=== PATIENT | female | born 1980 | race Caucasian/White ===

== ENCOUNTER → 2017-11-07 | Outpatient (CLI) | payer OTHER ==
[~2017-11-07] MED LIST: ACETAMINOPHEN-1 EAC1 PO; CIPROFLOXACIN500 M1 PO; COLACE 100 MG100 MG PO; COLACE100 MG PO; CYCLOBENZAPRINE5 MG PO; DICLOFENAC SODI75 MG PO; FLAGYL500 MG PO; FLEXERIL PO; FLOMAX0.4 MG PO; HYDROCODONE-AP1 EAC6 PO; HYDROCODONE-APA1 TA1 PO; IBUPROFEN 800800 M1 PO; IBUPROFEN 800800 MG PO; LO LOESTRIN FE1 EACH; MIRALAX17 GM PO; NABUMETONE 750750 M1 PO; NAPROSYN500 MG PO; NOHOMEMEDICATIONS; NORCO 5-325 TA1 EAC1 PO; NORCO 5-325 TA1 EACH PO; ONDANSETRON HCL4 M2 PO; PHENERGAN 25 MG25 M1 PO; PRINIVIL20 MG PO; ROBAXIN500 MG PO; TORADOL 10 MG T10 MG PO; TRAMADOL 50 MG50 MG; TRAMADOL 50 MG50 MG PO; TRAZODONE 150150 M1 PO; ULTRAM 50MG TAB50 MG; ULTRAM 50MG TAB50 MG PO; ZOFRAN ODT4 MG PO
== END ==
LOC: M.MRI 10-30 07:30
DX: S73.191A Other sprain of right hip, initial encounter (principal); X58.XXXA Exposure to other specified factors, initial encounter; Y93.89 Activity, other specified; Y92.89 Other specified places as the place of occurrence of the external cause; Y99.8 Other external cause status

== ENCOUNTER 2017-12-12 09:52 | Emergency (ER) | payer OTHER ==
[~2017-12-12] VITALS: Ht 162.6 cm; Wt 74.8 kg
[~2017-12-12 09:52] MED LIST changes: -CIPROFLOXACIN500 M1 PO; -FLAGYL500 MG PO; -PRINIVIL20 MG PO; -TRAZODONE 150150 M1 PO; -ULTRAM 50MG TAB50 MG PO
[2017-12-12] MEDS ORDERED: TRAZODONE 150150 M1 PO (10:04)
[2017-12-12] MEDS ORDERED: ULTRAM 50MG TAB50 MG PO (10:14)
[2017-12-12] MEDS ORDERED: FLEXERIL PO (10:14)
[2017-12-12 10:18] VITALS: BP 138/73
== END 2017-12-12 10:19 | disposition home or self-care (01) ==
LOC: M.ERS 09:52
DX: S40.011A Contusion of right shoulder, initial encounter (principal); F17.210 Nicotine dependence, cigarettes, uncomplicated; Z88.1 Allergy status to other antibiotic agents; V43.52XA Car driver injured in collision with other type car in traffic accident, initial encounter; Y93.I9 Activity, other involving external motion; Y92.828 Other wilderness area as the place of occurrence of the external cause; Y99.8 Other external cause status

== ENCOUNTER 2018-04-02 07:12 | Emergency (ER) | payer OTHER ==
[~2018-04-02] VITALS: Ht 167.6 cm; Wt 83.7 kg
[~2018-04-02 07:12] MED LIST changes: +TRAZODONE 150150 M1 PO; +ULTRAM 50MG TAB50 MG PO
[2018-04-02] MEDS ORDERED: TRAMADOL 50 MG50 MG PO (07:30)
[2018-04-02] MEDS ORDERED: PRINIVIL20 MG PO (07:30)
[2018-04-02 07:47] LABS: ABSOLUTE BASOPHILS 0.1 thou/uL (0.0-0.2); ABSOLUTE EOSINOPHILS 0.3 thou/uL (0.0-0.7); ABSOLUTE LYMPHOCYTES 2.8 thou/uL (0.8-5.3); ABSOLUTE MONOCYTES 0.7 thou/uL (0.0-1.2); BASOPHILS 0.6 %; EOSINOPHILS 2.1 %; HEMATOCRIT 41.7 % (37.0-47.0); HEMOGLOBIN 14.1 gm/dL (12.0-15.0); MCH 29.2 pg (26.0-34.0); MCHC 33.9 g/dL (28.0-37.0); MCV 86.1 fL (80.0-100.0); MPV 8.2 fl. (7.2-11.1); NUCLEATED RBCS 0 /100WBC; PLATELET COUNT* 393 thou/uL (150-400); POLYS 72.3 %; RBC 4.85 mil/uL (4.20-5.00); RDW-CV 13.2 % (10.5-14.5); WBC 13.8 thou/uL (4.0-11.0)
[2018-04-02 08:00] LABS: URINE BILIRUBIN NEGATIVE (Negative); URINE BLOOD 1+ (Negative); URINE CLARITY CLEAR; URINE COLOR YELLOW; URINE GLUCOSE-RANDOM NEGATIVE (Negative); URINE KETONES NEGATIVE (Negative); URINE LEUKOCYTES-REFLEX NEGATIVE (Negative); URINE NITRITE-REFLEX NEGATIVE (Negative); URINE PROTEIN NEGATIVE (Negative); URINE UROBILINOGEN 0.2 E.U./dl (0.2-1.0)
[2018-04-02 08:01] LABS: ANION GAP 11 mmol/L (7-16); BUN 20 mg/dL (7-18); CALCIUM 9.6 mg/dL (8.5-10.1); CHLORIDE 103 mmol/L (98-107); CO2 24 mmol/L (21-32); CREATININE 0.9 mg/dL (0.6-1.3); GLUCOSE 102 mg/dL (70-99); POTASSIUM 3.4 mmol/L (3.5-5.1); SODIUM 138 mmol/L (136-145)
[2018-04-02 08:07] LABS: ALBUMIN 4.5 g/dL (3.4-5.0); ALKALINE PHOSPHATASE 103 U/L (46-116); LIPASE 298 U/L (73-393); SGOT 18 U/L (15-37); SGPT 32 U/L (30-65); TOTAL BILIRUBIN 0.3 mg/dL (<0.1-1.0); TOTAL PROTEIN 8.9 g/dL (6.4-8.2); TROPONIN-I LEVEL <0.06 ng/mL (<0.06)
[2018-04-02] MEDS ORDERED: CIPROFLOXACIN500 M1 PO (09:10)
[2018-04-02] MEDS ORDERED: ZOFRAN ODT4 MG PO (09:10)
[2018-04-02] MEDS ORDERED: FLAGYL500 MG PO (09:10)
[2018-04-02] MEDS ORDERED: HYDROCODONE-AP1 EAC6 PO (09:10)
[2018-04-02 09:19] VITALS: BP 126/73
--- NOTE | 2018-04-02 10:23 | EKG ---
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[id number] Requested By: Davidson Garg Order Number: [id number] MD: Marino Daniel Measurements Intervals [place] Rate: 98 P: 60 NH: 227 QRS: 84 QRSD: 84 T: 32 QT: 332 QTc: 424 Interpretive Statements Sinus rhythm Prolonged NH interval Probable left atrial enlargement Baseline wander in lead(s) V2,V3 Compared to ECG 02/16/2017 13:19:38 no change Electronically Signed On 04-02-2018 10:23:37 CDT by Marino Daniel [email or web address] <ELECTRONICALLY SIGNED> By: Marino Daniel MD, [facility] 04/02/18 1023 0740 0740 Marino Daniel MD, [facility] /EPI
== END 2018-04-02 09:19 | disposition home or self-care (01) ==
LOC: M.ERS 07:12
PROVIDERS: Emergency Medicine
DX: K52.9 Noninfective gastroenteritis and colitis, unspecified (principal); N39.0 Urinary tract infection, site not specified; F17.210 Nicotine dependence, cigarettes, uncomplicated; Z88.1 Allergy status to other antibiotic agents; Z90.711 Acquired absence of uterus with remaining cervical stump

== ENCOUNTER → 2018-04-30 | Outpatient (CLI) | payer OTHER ==
[~2018-04-30] MED LIST changes: +CIPROFLOXACIN500 M1 PO; +FLAGYL500 MG PO; +PRINIVIL20 MG PO
== END ==
LOC: M.RAD 04-19 12:31
DX: M25.551 Pain in right hip (principal); Z79.899 Other long term (current) drug therapy

== ENCOUNTER → 2018-06-18 | Outpatient (CLI) | payer OTHER ==
[2018-06-18 11:39] LABS: ALBUMIN 4.2 g/dL (3.4-5.0); DIRECT BILIRUBIN 0.1 mg/dL (<0.1-0.3); TOTAL BILIRUBIN 0.2 mg/dL (<0.1-1.0); TOTAL PROTEIN 7.8 g/dL (6.4-8.2)
[2018-06-18 12:17] LABS: % SATURATION 32 % (20-39); IRON 94 ug/dL (50-175)
[2018-06-19 07:07] LABS: HEPATITIS B SURFACE AG Negative (Negative)
[2018-06-19 16:07] LABS: CERULOPLASMIN 25.1 mg/dL (19.0-39.0)
[2018-06-20 10:08] LABS: ANA INTERPRETATION Negative (Negative)
== END ==
LOC: M.LAB 10:57
PROVIDERS: Nurse Practitioner Family
DX: R74.8 Abnormal levels of other serum enzymes (principal); R17 Unspecified jaundice; R11.0 Nausea; R19.7 Diarrhea, unspecified

== ENCOUNTER → 2018-08-02 | Outpatient (CLI) | payer OTHER | LOC: M.MRI 07:10 | DX: M47.892 Other spondylosis, cervical region (principal); M54.2 Cervicalgia ==

== ENCOUNTER → 2018-10-04 | Outpatient (CLI) | payer OTHER ==
[2018-10-04 12:37] LABS: ALBUMIN 4.1 g/dL (3.4-5.0); CALCIUM 9.1 mg/dL (8.5-10.1); CREATININE 0.7 mg/dL (0.6-1.3); TOTAL BILIRUBIN 0.2 mg/dL (<0.1-1.0); TOTAL PROTEIN 7.7 g/dL (6.4-8.2)
== END ==
LOC: M.LAB 11:37 → M.CT 11:37
PROVIDERS: Nurse Practitioner Family
DX: R07.89 Other chest pain (principal); R31.9 Hematuria, unspecified; R10.9 Unspecified abdominal pain

== ENCOUNTER → 2018-12-10 | Outpatient (CLI) | payer OTHER | LOC: M.MRI 11:04 | DX: M51.27 Other intervertebral disc displacement, lumbosacral region (principal) ==

== ENCOUNTER 2018-12-29 14:21 | Emergency (ER) | payer OTHER ==
[~2018-12-29] VITALS: Ht 162.6 cm; Wt 90.7 kg
[2018-12-29 14:27] VITALS: BP 169/83
[2018-12-29] MEDS ORDERED: ORPHENADRINE C100 M2 PO (14:31)
[2018-12-29] MEDS ORDERED: LISINOPRIL40 MG PO (14:31)
[2018-12-29] MEDS ORDERED: NORCO 5-325 TA1 EACH PO (14:37)
[2018-12-29] MEDS ORDERED: CLEOCIN HCL150 MG PO (14:37)
[2018-12-29] MEDS ORDERED: LIDOCAINE VISC100 ML SWISH&SPIT (14:37)
== END 2018-12-29 14:40 | disposition home or self-care (01) ==
LOC: M.ERS 14:21
DX: M27.3 Alveolitis of jaws (principal); F17.210 Nicotine dependence, cigarettes, uncomplicated; Z88.1 Allergy status to other antibiotic agents; Z90.711 Acquired absence of uterus with remaining cervical stump

== ENCOUNTER 2019-02-17 17:56 | Emergency (ER) | payer OTHER ==
[~2019-02-17] VITALS: Ht 162.6 cm; Wt 90.7 kg
[~2019-02-17 17:56] MED LIST changes: +CLEOCIN HCL150 MG PO; +LIDOCAINE VISC100 ML SWISH&SPIT; +LISINOPRIL40 MG PO; +ORPHENADRINE C100 M2 PO
[2019-02-17] MEDS ORDERED: IBUPROFEN 800800 M1 PO (19:33)
[2019-02-17 19:41] VITALS: BP 182/69
== END 2019-02-17 19:42 | disposition home or self-care (01) ==
LOC: M.ERS 17:56
DX: S20.211A Contusion of right front wall of thorax, initial encounter (principal); Z90.710 Acquired absence of both cervix and uterus; F17.210 Nicotine dependence, cigarettes, uncomplicated; Z88.1 Allergy status to other antibiotic agents; W10.8XXA Fall (on) (from) other stairs and steps, initial encounter; Y93.89 Activity, other specified; Y92.89 Other specified places as the place of occurrence of the external cause; Y99.8 Other external cause status

== ENCOUNTER → 2020-03-10 | Outpatient (CLI) | payer OTHER | LOC: M.MRI 16:50 | DX: S73.102A Unspecified sprain of left hip, initial encounter (principal); M77.8 Other enthesopathies, not elsewhere classified; M25.452 Effusion, left hip; X58.XXXA Exposure to other specified factors, initial encounter; Y93.89 Activity, other specified; Y92.89 Other specified places as the place of occurrence of the external cause; Y99.8 Other external cause status ==

== ENCOUNTER → 2021-02-07 | Outpatient (CLI) | payer BC | LOC: M.RAD 15:18 | PROVIDERS: ATTEND Nurse Practitioner Family | DX: M77.8 Other enthesopathies, not elsewhere classified (principal) ==

== ENCOUNTER → 2021-07-27 | Outpatient (CLI) | payer OTHER | LOC: M.ULTRA 10:14 | PROVIDERS: ATTEND Nurse Practitioner Family | DX: M79.604 Pain in right leg (principal); R22.41 Localized swelling, mass and lump, right lower limb ==